=== PATIENT | male | born 2000 ===

== ENCOUNTER 2020-01-07 21:58 | Emergency (ER) | payer SELFPAY ==
[~2020-01-07] VITALS: Ht 185.4 cm; Wt 73.0 kg
[2020-01-07] MEDS ORDERED: LIDOCAINE-MPF 1%, 5ML ONE (22:13)
[2020-01-07] MEDS ORDERED: LIDOCAINE-MPF 1%, 5ML INFIL ONE (22:30)
--- NOTE | 2020-01-07 23:05 | NUR ---
Applied dressing and bacitracin per MD order. Pt verbalizes understanding of wound care and abx tx
[2020-01-07 23:06] VITALS: BP 103/69
== END 2020-01-07 23:55 | disposition home or self-care (01) ==
LOC: ED 23:00
DX: L60.0 Ingrowing nail (principal)
CPT/HCPCS: 11730; 99284